=== PATIENT | male | born 1995 | race African-American/Black ===

== ENCOUNTER 2020-09-20 04:25 | Day surgery (SDC) | payer OTHER ==
[2020-09-18 16:40] VITALS: BMI 65.8
[2020-09-20 12:00] VITALS: TEMP 97.4
[2020-09-20 12:36] VITALS: BP 126/61; PULSE 74
== END 2020-09-20 12:35 | disposition home or self-care (01) ==
LOC: JASU-ENDO 04:25
PROVIDERS: ATTEND Internal Medicine Gastroenterology
PROC: 0DB78ZX Excision of Stomach, Pylorus, Via Natural or Artificial Opening Endoscopic, Diagnostic (ICD-10-PCS; principal; 2020-09-20 11:15)
DX: K29.50 Unspecified chronic gastritis without bleeding (principal)
CPT/HCPCS: 88305-TC; 88342-TC